=== PATIENT | male | born 1955 | race Caucasian/White ===

== ENCOUNTER 2018-03-31 09:50 | Day surgery (SDC) | payer OTHER ==
[2018-03-31] MEDS ORDERED: LIDOCAINE 2% (SDV) 5 ML INJ (11:54)
[2018-03-31] MEDS ORDERED: PROPOFOL 60 ML (11:54)
[2018-03-31] MEDS ORDERED: FENTAnyl 50 MCG/ML VIAL IV (12:30)
[2018-03-31] MEDS ORDERED: ONDANSETRON 4 MG INJ IV (12:30)
[2018-03-31] MEDS ORDERED: DIPHENHYDRAMINE 50 MG INJ IV (12:30)
[2018-03-31] MEDS ORDERED: MEPERIDINE 25 MG INJ IV (12:30)
== END 2018-03-31 14:48 | disposition home or self-care (01) ==
LOC: GIL 09:50
DX: Z12.11 Encounter for screening for malignant neoplasm of colon (principal); K22.70 Barrett's esophagus without dysplasia; K57.30 Diverticulosis of large intestine without perforation or abscess without bleeding
CPT/HCPCS: 43239; 88305; 88312; 88313

== ENCOUNTER 2018-06-03 07:01 | Observation (INO) | payer OTHER ==
[2018-06-03 07:38] LABS: ADD MAN DIFF? NO
[2018-06-03 07:44] LABS: WHITE BLOOD COUNT 4.9 10^3/ul (4.8-10.8)
[2018-06-03 07:44] LABS: BASOPHILS % 0.6 % (0.0-2.0); EOSINOPHILS # 0.1 10^3/ul (0.0-0.5); EOSINOPHILS % 1.8 % (0.0-7.0); HEMATOCRIT 41.5 % (42.0-52.0); HEMOGLOBIN 14.3 g/dl (14.0-18.0); LYMPHOCYTES # 1.6 10^3/ul (0.8-2.9); LYMPHOCYTES % 32.6 % (15.0-51.0); MEAN CORPUSCULAR HEMOGLOBIN 32.1 pg (29.0-33.0); MEAN CORPUSCULAR HGB CONC 34.5 g/dl (32.0-37.0); MEAN PLATELET VOLUME 10.9 fl (7.4-10.4); MONOCYTE # 0.4 10^3/ul (0.3-0.9); MONOCYTES % 8.7 % (0.0-11.0); NEUTROPHIL # 2.8 10^3/ul (1.6-7.5); NEUTROPHILS % 56.1 % (39.0-77.0); PLATELET COUNT 179 10^3/UL (140-415); RED BLOOD COUNT 4.46 10^6/ul (4.70-6.10); RED CELL DISTRIBUTION WIDTH 12.5 % (11.5-14.5)
[2018-06-03] MEDS: FAMOTIDINE 20 MG TAB PO (08:00)
[2018-06-03] MEDS: DIAZEPAM 5 MG TAB PO (08:00)
[2018-06-03] MEDS ORDERED: SOD CHLORIDE 0.45% 1,000 ML IV (08:00)
[2018-06-03] MEDS: DIPHENHYDRAMINE 50 MG CAP PO (08:00)
[2018-06-03 08:01] LABS: PROTIME 12.3 Sec (11.9-14.9)
[2018-06-03 08:02] LABS: PARTIAL THROMBOPLASTIN TIME 32.6 Sec (23.0-35.0)
[2018-06-03 08:04] LABS: ANION GAP 10 (5-13); BLOOD UREA NITROGEN 12 mg/dl (7-20); CALCIUM 9.5 mg/dl (8.4-10.2); CARBON DIOXIDE 27 mmol/L (21-31); CHLORIDE 104 mmol/L (97-110); CHOL/HDL RATIO 7.6 RATIO; CHOLESTEROL 222 mg/dl (100-200); CREATININE 1.02 mg/dl (0.61-1.24); Estimated GFR > 60 mL/min (>60); GLUCOSE 108 mg/dl (70-220); HDL CHOLESTEROL 29 mg/dl (30-78); POTASSIUM 3.9 mmol/L (3.5-5.1); SODIUM 141 mmol/L (135-144)
[2018-06-03 08:08] LABS: TRIGLYCERIDES > 525 mg/dl (0-149)
[2018-06-03] MEDS ORDERED: NITROGLYCERIN (IC) 100 MCG/ML INJ (08:46)
[2018-06-03] MEDS ORDERED: MIDAZOLAM 1 MG/ML 2 ML INJ (08:46)
[2018-06-03] MEDS ORDERED: IODIXANOL LOCM 100 ML BTL (08:46)
[2018-06-03] MEDS ORDERED: LIDOCAINE 1% (MDV) 20 ML INJ (08:46)
[2018-06-03] MEDS ORDERED: HEPARIN 1000 UNITS/ML 10 ML INJ (08:46)
[2018-06-03] MEDS ORDERED: FENTAnyl 50 MCG/ML VIAL (08:46)
[2018-06-03] MEDS ORDERED: SOD CHLORIDE 0.9% 500 ML (08:47)
[2018-06-03] MEDS ORDERED: VERAPAMIL 5 MG INJ (09:02)
[2018-06-03] MEDS ORDERED: ASPIRIN 325 MG TAB (10:20)
[2018-06-03] MEDS ORDERED: TICAGRELOR 90 MG TABLET (10:20)
[2018-06-03] MEDS ORDERED: IOHEXOL 350MG/ML 50 ML BTL (10:27)
[2018-06-03] MEDS ORDERED: AL HYDROX/MG HYDROX/SIMETH 30 ML CUP PO (10:30)
[2018-06-03] MEDS ORDERED: ZOLPIDEM 5 MG TAB PO (10:30)
[2018-06-03] MEDS ORDERED: OXYCODONE/ACETAMINOPHEN (5/325) TAB PO (10:30)
[2018-06-03] MEDS ORDERED: ONDANSETRON 4 MG INJ IV (10:30)
[2018-06-03] MEDS ORDERED: morphine 2 MG INJ IV (10:30)
[2018-06-03] MEDS: SOD CHLORIDE 0.9% 1,000 ML IV (11:32)
[2018-06-03] MEDS: TICAGRELOR 90 MG TABLET PO ×2 (13:27→20:20)
[2018-06-03] MEDS ORDERED: DOCUSATE SODIUM 100 MG CAP PO (14:00)
[2018-06-03] MEDS: FLUOXETINE 20 MG CAP PO (15:06)
[2018-06-03] MEDS: SERTRALINE 100 MG TAB PO (15:06)
[2018-06-03] MEDS: hydrALAzine 20 MG INJ IV (17:12)
[2018-06-03] MEDS: ACETAMINOPHEN 325 MG TAB PO (20:15)
[2018-06-03] MEDS: traZODone 50 MG TAB PO (20:21)
[2018-06-04] MEDS: PANTOPRAZOLE (EC) 40 MG TAB PO (05:02)
[2018-06-04 07:21] LABS: ADD MAN DIFF? NO
[2018-06-04 07:26] LABS: WHITE BLOOD COUNT 6.3 10^3/ul (4.8-10.8)
[2018-06-04 07:26] LABS: BASOPHILS % 0.6 % (0.0-2.0); EOSINOPHILS # 0.1 10^3/ul (0.0-0.5); EOSINOPHILS % 1.3 % (0.0-7.0); HEMOGLOBIN 15.9 g/dl (14.0-18.0); LYMPHOCYTES # 1.1 10^3/ul (0.8-2.9); LYMPHOCYTES % 16.9 % (15.0-51.0); MEAN CORPUSCULAR HEMOGLOBIN 32.4 pg (29.0-33.0); MEAN CORPUSCULAR HGB CONC 34.6 g/dl (32.0-37.0); MEAN CORPUSCULAR VOLUME 93.7 fl (82.0-101.0); MEAN PLATELET VOLUME 11.1 fl (7.4-10.4); MONOCYTE # 0.5 10^3/ul (0.3-0.9); MONOCYTES % 8.4 % (0.0-11.0); NEUTROPHIL # 4.6 10^3/ul (1.6-7.5); NEUTROPHILS % 72.5 % (39.0-77.0); PLATELET COUNT 197 10^3/UL (140-415); RED BLOOD COUNT 4.91 10^6/ul (4.70-6.10); RED CELL DISTRIBUTION WIDTH 12.7 % (11.5-14.5)
[2018-06-04 07:46] LABS: ANION GAP 12 (5-13); BLOOD UREA NITROGEN 13 mg/dl (7-20); CALCIUM 9.7 mg/dl (8.4-10.2); CARBON DIOXIDE 28 mmol/L (21-31); CHLORIDE 102 mmol/L (97-110); CREATINE KINASE 90 IU/L (23-200); CREATININE 1.11 mg/dl (0.61-1.24); Estimated GFR > 60 mL/min (>60); GLUCOSE 109 mg/dl (70-220); POTASSIUM 3.9 mmol/L (3.5-5.1); SODIUM 142 mmol/L (135-144)
[2018-06-04 07:53] LABS: CK INDEX 0.5; CK-MB 0.47 ng/ml (0.0-2.4); TROPONIN-I 0.018 ng/ml (0.000-0.120)
[2018-06-04] MEDS: ASPIRIN (EC) 81 MG TAB PO (08:30)
[2018-06-04] MEDS: HYDROCHLOROTHIAZIDE 25 MG TAB PO (08:32)
[2018-06-04] MEDS: LISINOPRIL 10 MG TAB PO (08:33)
[2018-06-04] MEDS: TICAGRELOR 90 MG TABLET PO ×2 (08:37→20:56)
[2018-06-04] MEDS: FLUOXETINE 20 MG CAP PO (09:00)
[2018-06-04] MEDS: SERTRALINE 100 MG TAB PO (09:00)
[2018-06-04] MEDS ORDERED: SERTRALINE 100 MG TAB PO (09:00)
[2018-06-04] MEDS ORDERED: FLUOXETINE 20 MG CAP PO (09:00)
[2018-06-05] MEDS ORDERED: CLOPIDOGREL 75 MG TAB PO (09:00)
[2018-06-06] MEDS ORDERED: CLOPIDOGREL 75 MG TAB PO (09:00)
== END 2018-06-04 21:15 | disposition home or self-care (01) ==
LOC: SDS 07:01 → TEL 06-04 12:38 → SDS 07:01 → REC 10:24 → TEL 11:16
DX: I25.10 Atherosclerotic heart disease of native coronary artery without angina pectoris (principal); I10 Essential (primary) hypertension; E78.5 Hyperlipidemia, unspecified
CPT/HCPCS: 71045; 80048; 80061; 82550; 82553; 84484; 85025; 85610; 85730; 92928; 93005; 93458; 99217; G0378